=== PATIENT | female | born 1955 | race Caucasian/White ===

== ENCOUNTER → 2017-03-24 | Outpatient (CLI) | payer OTHER | LOC: PUL 08:37 | DX: J84.9 Interstitial pulmonary disease, unspecified (principal); J67.9 Hypersensitivity pneumonitis due to unspecified organic dust ==

== ENCOUNTER 2017-08-15 15:23 | Inpatient (IN) | payer OTHER ==
[~2017-08-15] VITALS: Ht 167.6 cm; Wt 125.8 kg
--- NOTE | ~2017-08-15 | EKG ---
[address] [address] ELECTROCARDIOGRAM REPORT Name: MANPREET BENITEZJAVIER Dyer Room #: 207-P ADM IN M.R.#: [id number] Admission: 08/15/17 Attend Phys: Waqar Dunn MD Discharge: Date of : 53 Report #: [id number] THIS REPORT FOR: //name// [facility] ED Test Date: 2017-08-15 Test Time: 15:38:10 Pat Name: MIHIR BENITEZ Department: Room: 207 Gender: F Accounts Payable Representative: MANDO : 1955 Requested By: Elder Ngo Order Number: [id number] MD: Benedicto Alcazar Measurements Intervals [place] Rate: 79 P: 25 VA: 184 QRS: -35 QRSD: 97 T: 63 QT: 380 QTc: 436 Interpretive Statements Sinus rhythm Left axis deviation RSR' in V1 or V2, probably normal variant No previous ECG available for comparison Electronically Signed On 08-16-2017 8:04:10 CDT by Benedicto Alcazar [email or web address] <ELECTRONICALLY SIGNED> By: Benedicto Alcazar MD, [facility] 08/16/17 0804 D: [id number] Benedicto Alcazar MD, FACC /EPI
[2017-08-15 15:28] VITALS: BP 125/54
[2017-08-15 15:42] LABS: ABSOLUTE NEUTROPHILS 6.3 thou/uL (1.4-8.2); EOSINOPHILS 3.4 % (0.0-3.0); HEMATOCRIT 35.1 % (37.0-47.0); HEMOGLOBIN 11.2 gm/dL (12.0-15.0); LYMPHOCYTES 24.4 % (24.0-44.0); MCH 25.5 pg (26.0-34.0); MCV 79.8 fL (80.0-100.0); MONOCYTES 5.7 % (1.0-8.0); PLATELET COUNT 252 thou/uL (150-400); POLYS 65.5 % (36.0-66.0); RBC 4.39 mil/uL (4.20-5.00); RDW 16.9 % (10.5-14.5); WBC 9.6 thou/uL (4.0-11.0)
[2017-08-15 15:50] LABS: ANION GAP 6 mmol/L (7-16); BUN 14 mg/dL (7-18); CALCIUM 8.9 mg/dL (8.5-10.1); CHLORIDE 106 mmol/L (98-107); CO2 31 mmol/L (21-32); CREATININE 0.8 mg/dL (0.6-1.0); GLUCOSE 105 mg/dL (74-106); POTASSIUM 3.6 mmol/L (3.5-5.1); SODIUM 143 mmol/L (136-145)
[2017-08-15 15:58] LABS: ALBUMIN 3.1 g/dL (3.4-5.0); SGOT 21 U/L (15-37); SGPT 29 U/L (30-65); TOTAL BILIRUBIN 0.2 mg/dL (<0.1-1.0); TOTAL PROTEIN 7.1 g/dL (6.4-8.2); TROPONIN-I < 0.04 ng/mL (<0.06)
[2017-08-15] MEDS ORDERED: CLARITIN10 MG PO (16:14)
[2017-08-15] MEDS ORDERED: RANITIDINE 150150 M1 PO (16:14)
[2017-08-15] MEDS ORDERED: LIPITOR10 MG PO (16:14)
[2017-08-15] MEDS ORDERED: PULMICORT0.25 MG/3 INH (16:15)
[2017-08-15] MEDS ORDERED: MIRAPEX0.5 MG PO (16:16)
[2017-08-15] MEDS ORDERED: MIRAPEX0.25 MG PO (16:16)
[2017-08-15] MEDS ORDERED: VITAMIN D50000 UNIT PO (16:17)
[2017-08-15] MEDS ORDERED: GUAIFENESIN-CODE5 ML PO (16:18)
[2017-08-15 16:20] VITALS: BP 123/60
[2017-08-15 17:28] VITALS: BP 110/67
[2017-08-15 17:43] VITALS: BP 119/47
[2017-08-15 19:56] VITALS: BP 118/47
[2017-08-15 23:25] VITALS: BP 113/57
[2017-08-16 04:49] VITALS: BP 125/65
[2017-08-16 07:43] VITALS: BP 145/63
[2017-08-16 12:33] VITALS: BP 120/61
[2017-08-16 15:31] VITALS: BP 132/61
[2017-08-16 20:01] VITALS: BP 126/63
[2017-08-17 04:44] VITALS: BP 132/62
[2017-08-17 07:47] VITALS: BP 128/60
[2017-08-17] MEDS ORDERED: KEFLEX500 M1 PO (16:30)
[2017-08-17 16:36] VITALS: BP 128/60
[2017-08-18] MEDS ORDERED: CLEOCIN HCL300 MG PO (14:14)
[2017-08-18] MEDS ORDERED: NAPROSYN500 MG PO (14:14)
== END 2017-08-17 17:45 | disposition home or self-care (01) | DRG 311 ==
LOC: ER 15:23 → EROBS 16:09 → 2N 16:09 → ENTRNSPT 08-17 17:12 → 2N 08-17 17:45
PROVIDERS: Emergency Medicine
DX: I20.8 Other forms of angina pectoris (principal); Z68.41 Body mass index [BMI] 40.0-44.9, adult; I80.8 Phlebitis and thrombophlebitis of other sites; G47.33 Obstructive sleep apnea (adult) (pediatric); E66.9 Obesity, unspecified; Z88.0 Allergy status to penicillin; Z79.899 Other long term (current) drug therapy
CPT/HCPCS: 10081

== ENCOUNTER 2017-08-18 12:22 | Emergency (ER) | payer OTHER ==
[~2017-08-18] VITALS: Ht 167.6 cm; Wt 126.1 kg
[~2017-08-18 12:22] MED LIST: CLARITIN10 MG PO; GUAIFENESIN-CODE5 ML PO; KEFLEX500 M1 PO; LIPITOR10 MG PO; MIRAPEX0.25 MG PO; MIRAPEX0.5 MG PO; PULMICORT0.25 MG/3 INH; RANITIDINE 150150 M1 PO; VITAMIN D50000 UNIT PO
[2017-08-18] MEDS ORDERED: NAPROSYN500 MG PO (14:14)
[2017-08-18] MEDS ORDERED: CLEOCIN HCL300 MG PO (14:14)
[2017-08-18 15:04] VITALS: BP 129/82
== END 2017-08-18 15:05 | disposition home or self-care (01) ==
LOC: ER 12:22
DX: I80.8 Phlebitis and thrombophlebitis of other sites (principal); J44.9 Chronic obstructive pulmonary disease, unspecified; G47.30 Sleep apnea, unspecified; Z88.0 Allergy status to penicillin